=== PATIENT | female | born 1955 | race Caucasian/White ===

== ENCOUNTER 2021-05-14 08:08 | Emergency (ER) | payer MEDICARE ==
[~2021-05-14] VITALS: Ht 165.1 cm; Wt 100.0 kg
[2021-05-14] MEDS ORDERED: METOPROL TAR100 MG PO (08:43)
[2021-05-14] MEDS ORDERED: OMEPRAZOLE20 MG PO (08:44)
[2021-05-14] MEDS ORDERED: HYDROCHLOROTH12.5 MG PO (08:44)
[2021-05-14] MEDS ORDERED: LORTAB 1010 MG PO (08:47)
[2021-05-14] MEDS ORDERED: CYCLOBENZAPRINE10 MG PO (08:47)
[2021-05-14] MEDS ORDERED: MELOXICAM15 MG PO (09:04)
[2021-05-14] MEDS ORDERED: PRAVASTATIN40 MG PO (09:06)
[2021-05-14] MEDS ORDERED: ASPIRIN 81 LOW81 MG PO (09:06)
[2021-05-14] MEDS ORDERED: TRICOR145 MG PO (09:06)
[2021-05-14] MEDS ORDERED: MYSOLINE50 M3 PO (09:06)
[2021-05-14] MEDS ORDERED: PROMETHAZINE50 MG PO (09:10)
[2021-05-14] MEDS ORDERED: MACROBID100 M1 PO (09:10)
[2021-05-14] MEDS ORDERED: MECLIZINE25 MG PO (09:11)
[2021-05-14] MEDS ORDERED: MULTIVITAMIN1 TA1 PO (09:12)
[2021-05-14] MEDS ORDERED: VITAMIN D32000 UNI2 PO (09:14)
[2021-05-14] MEDS ORDERED: CALCIUM + D PO (09:14)
[2021-05-14] MEDS ORDERED: TURMERIC500 M1 PO (09:15)
[2021-05-14] MEDS ORDERED: [UNRECOGNIZED DRUG - OTHER] PO (09:16)
[2021-05-14] MEDS ORDERED: B12 LIQUID PO (09:18)
[2021-05-14 09:55] VITALS: BP 165/82
== END 2021-05-14 09:55 | disposition home or self-care (01) ==
LOC: ED 08:08
DX: S83.92XA Sprain of unspecified site of left knee, initial encounter (principal); I10 Essential (primary) hypertension; I48.91 Unspecified atrial fibrillation; W19.XXXA Unspecified fall, initial encounter